=== PATIENT | male | born 1930 | race Caucasian/White ===

== ENCOUNTER 2017-01-11 10:06 | Inpatient (IN) | payer MEDICARE, OTHER ==
[~2017-01-11] VITALS: Ht 170.2 cm; Wt 66.9 kg
[2017-01-11] VITALS (9 sets, daily range): BP systolic 109–169; BP diastolic 59–107; PULSE 60–79; TEMP 97.9–98.5
[~2017-01-11 10:06] MED LIST: AMBIEN 10MG10 MG PO; ASPIRIN 81M81 MG/TA2 PO; CALCIUM 600MG+D1 TAB PO; COMPLETE SENIOR1 TA1 PO; COUMADIN 5MG5 MG/TAB PO; CRESTOR5 MG PO; LOPRESSOR 225 MG/TAB PO; SYNTHROID0.075 MG/T PO; VITAMIN D32000 I1 PO
[2017-01-11] MEDS ORDERED: COUMADIN 77.5 MG/TAB PO (10:28)
[2017-01-11 11:02] LABS: HEMATOCRIT 42.6 % (42.0-52.0); HEMOGLOBIN 13.8 g/dl (13.5-18.0); INR 1.6 (0.8-3.0); MEAN CELL VOLUME 88 fl (80.0-100.0); MEAN CORPUSCULAR HEMOGLOBIN 28 pg (27.0-31.0); MEAN CORPUSCULAR HGB CONC 32 g/dl (33.0-37.0); MEAN PLATELET VOLUME 12.2 fl (7.4-10.4); PLATELET COUNT 155 K/mm3 (130-400); PROTHROMBIN TIME 18.1 SECONDS (9.7-12.8); RED BLOOD COUNT 4.87 M/mm3 (4.20-5.60); REDCELL DISTRIBUTION WIDTH-CV 14.7 % (11.5-14.5); WHITE BLOOD COUNT 4.8 K/mm3 (4.8-10.8)
[2017-01-11 11:30] LABS: CALCIUM 9.5 mg/dL (8.4-10.2); CREATININE, serum 0.73 mg/dL (0.66-1.25); POTASSIUM 4.2 mmol/L (3.4-5.0)
[2017-01-12 05:17] VITALS: BP 99/55; PULSE 62; TEMP 98.4
[2017-01-12 07:25] VITALS: BP 132/65; PULSE 72
[2017-01-12 07:37] LABS: HEMOGLOBIN 12.3 g/dl (13.5-18.0); MEAN CELL VOLUME 88 fl (80.0-100.0); MEAN CORPUSCULAR HEMOGLOBIN 28 pg (27.0-31.0); MEAN CORPUSCULAR HGB CONC 32 g/dl (33.0-37.0); MEAN PLATELET VOLUME 12.6 fl (7.4-10.4); PLATELET COUNT 146 K/mm3 (130-400); RED BLOOD COUNT 4.33 M/mm3 (4.20-5.60); REDCELL DISTRIBUTION WIDTH-CV 14.7 % (11.5-14.5); WHITE BLOOD COUNT 5.4 K/mm3 (4.8-10.8)
[2017-01-12 07:57] LABS: INR 1.7 (0.8-3.0); PROTHROMBIN TIME 18.9 SECONDS (9.7-12.8)
[2017-01-12 07:58] LABS: CALCIUM 8.7 mg/dL (8.4-10.2); CREATININE, serum 0.77 mg/dL (0.66-1.25); MAGNESIUM 1.8 mg/dL (1.6-2.3); POTASSIUM 4.2 mmol/L (3.4-5.0)
[2017-01-12 11:08] VITALS: BP 106/66; PULSE 51; TEMP 97
[2017-01-12 15:05] VITALS: BP 126/79; PULSE 73; TEMP 98
[2017-01-12 20:28] VITALS: BP 110/68; PULSE 83; TEMP 97.6
[2017-01-13] VITALS (10 sets, daily range): BP systolic 102–134; BP diastolic 51–82; PULSE 59–77; TEMP 97.6–98.4
[2017-01-13 07:32] LABS: HEMATOCRIT 37.1 % (42.0-52.0); HEMOGLOBIN 12.1 g/dl (13.5-18.0); MEAN CELL VOLUME 87 fl (80.0-100.0); MEAN CORPUSCULAR HEMOGLOBIN 29 pg (27.0-31.0); MEAN CORPUSCULAR HGB CONC 33 g/dl (33.0-37.0); PLATELET COUNT 141 K/mm3 (130-400); RED BLOOD COUNT 4.25 M/mm3 (4.20-5.60); REDCELL DISTRIBUTION WIDTH-CV 14.7 % (11.5-14.5); WHITE BLOOD COUNT 5.1 K/mm3 (4.8-10.8)
[2017-01-13 07:34] LABS: INR 1.6 (0.8-3.0); PROTHROMBIN TIME 18.1 SECONDS (9.7-12.8)
[2017-01-13 07:37] LABS: CALCIUM 8.9 mg/dL (8.4-10.2); CREATININE, serum 0.77 mg/dL (0.66-1.25); MAGNESIUM 1.9 mg/dL (1.6-2.3)
[2017-01-13] MEDS ORDERED: BETAPACE 80MG80 MG PO (15:25)
[2017-01-13] MEDS ORDERED: CEPHALEXIN500 M1 PO (15:26)
== END 2017-01-13 16:17 | disposition home or self-care (01) | DRG 259 ==
LOC: EUO 10:06 → COL.RAD 12:00 → MEDICAL 14:53
PROVIDERS: Internal Medicine Cardiovascular Disease
PROC: 0JH606Z Insertion of Pacemaker, Dual Chamber into Chest Subcutaneous Tissue and Fascia, Open Approach (ICD-10-PCS; principal; 2017-01-11)
PROC: 5A2204Z Restoration of Cardiac Rhythm, Single (ICD-10-PCS; 2017-01-13)
DX: I48.0 Paroxysmal atrial fibrillation (principal); Z45.010 Encounter for checking and testing of cardiac pacemaker pulse generator [battery]; I48.92 Unspecified atrial flutter; Z79.01 Long term (current) use of anticoagulants
CPT/HCPCS: C1785; J0690; J2250; J2704; J3010; J7030

== ENCOUNTER 2020-03-17 09:03 | Day surgery (SDC) | payer MEDICARE, OTHER ==
[~2020-03-17] VITALS: Ht 170.3 cm; Wt 62.0 kg
[2020-03-17] VITALS (7 sets, daily range): BP systolic 127–148; BP diastolic 74–90; PULSE 59–65; TEMP 65
[~2020-03-17 09:03] MED LIST changes: +BETAPACE 80MG80 MG PO; +CEPHALEXIN500 M1 PO; +COUMADIN 77.5 MG/TAB PO
[2020-03-17 09:49] LABS: HEMATOCRIT 40.6 % (42.0-52.0); MEAN CELL VOLUME 91 fl (80.0-100.0); MEAN CORPUSCULAR HEMOGLOBIN 29 pg (27.0-31.0); MEAN CORPUSCULAR HGB CONC 32 g/dl (33.0-37.0); MEAN PLATELET VOLUME 12.7 fl (7.4-10.4); PLATELET COUNT 118 K/mm3 (130-400); RED BLOOD COUNT 4.45 M/mm3 (4.20-5.60); REDCELL DISTRIBUTION WIDTH-CV 14.5 % (11.5-14.5)
[2020-03-17] MEDS ORDERED: ZEBETA 5MG5 MG PO (09:53)
[2020-03-17] MEDS ORDERED: VITAMIN D31000 I1 PO (09:54)
[2020-03-17] MEDS ORDERED: XALATAN EYE DROPS OU (09:54)
[2020-03-17] MEDS ORDERED: NITROSTAT0.4 MG/TAB SL (09:54)
[2020-03-17 09:55] LABS: INR 1.6 (0.8-3.0); PROTHROMBIN TIME 18.4 SECONDS (9.7-12.8)
[2020-03-17 09:59] LABS: CALCIUM 9.1 mg/dL (8.4-10.2); CREATININE, serum 0.82 (0.66-1.25); POTASSIUM 4.2 mmol/L (3.4-5.0)
--- NOTE | 2020-03-17 10:42 | NUR ---
SEE MERGE FOR ALL MEDICATION ADMIN TIMES AND INTRA AND POST SEDATION ASSESSMENTS
--- NOTE | 2020-03-17 11:40 | NUR ---
PT TO [facility] 9 VIA BED FROM LOCAL AREA NETWORK ADMINISTRATOR, IN ROOM, PT IS AWAKE, CALL LIGHT IN REACH. DRESSING ON CLEAN AND DRY. DR PEREZ INTO SEE PT
--- NOTE | 2020-03-17 11:55 | NUR ---
PT TAKES JUICE AND SNACK, SITS UP IN BED, VISITS WITH
[2020-03-17] MEDS ORDERED: CEPHALEXIN500 M1 PO (12:29)
--- NOTE | 2020-03-17 13:20 | NUR ---
PT SITS ON SIDE OF BED, TOLERATED WELL, UP IN ROOM DRESSED, INT D'CD INTACT. REVIEWED DISCHARGE INSTRUCTIONS WITH PT AND ON FOLLOWUP AND SITE CARE. ALSO PT TO WELLNESS PROGRAM COORDINATOR NEW RX KEFLEX TODAY WITH VERBAL UNDERSTANDING, PT DISCHARGED AT 1340 VIA W/C TO CAR WITH
== END 2020-03-17 13:40 | disposition home or self-care (01) ==
LOC: COL.CAR 09:03
PROVIDERS: Internal Medicine Cardiovascular Disease
DX: Z45.010 Encounter for checking and testing of cardiac pacemaker pulse generator [battery] (principal); I49.5 Sick sinus syndrome; I48.91 Unspecified atrial fibrillation; Z95.2 Presence of prosthetic heart valve; K21.9 Gastro-esophageal reflux disease without esophagitis; G47.33 Obstructive sleep apnea (adult) (pediatric); I99.8 Other disorder of circulatory system; D50.9 Iron deficiency anemia, unspecified; I11.0 Hypertensive heart disease with heart failure; I50.9 Heart failure, unspecified; I25.10 Atherosclerotic heart disease of native coronary artery without angina pectoris; E78.5 Hyperlipidemia, unspecified; Z79.82 Long term (current) use of aspirin; Z79.01 Long term (current) use of anticoagulants; Z79.899 Other long term (current) drug therapy
CPT/HCPCS: J0690; J2250; J3010; J7030